=== PATIENT | female | born 1975 | race Two or more races ===

== ENCOUNTER 2020-12-30 05:18 | Day surgery (SDC) | payer OTHER ==
[~2020-12-30 05:18] MED LIST: FORTAMET1000 MG; LIPITOR40 M1; ZYRTEC10 M3
[2020-12-30] MEDS ORDERED: PERCOCET 5-3251 EACH PO (09:36)
== END 2020-12-30 12:55 | disposition home or self-care (01) ==
LOC: CIR.AMB 05:18
PROVIDERS: ATTEND Surgery
DX: D35.1 Benign neoplasm of parathyroid gland (principal); Z20.822 Contact with and (suspected) exposure to COVID-19